=== PATIENT | female | born 1960 | race Two or more races ===

== ENCOUNTER 2019-11-21 21:27 | Emergency (ER) | payer SELFPAY ==
[2019-11-21] MEDS ORDERED: MAG HYDROX/AL HYDROX/SIMETH SUSP 30 ML UDCUP PO ONE (22:25)
[2019-11-21] MEDS ORDERED: LIDOCAINE 2% VISCOUS SOLN 20 ML UDCUP PO ONE (22:25)
[2019-11-21] MEDS ORDERED: ONDANSETRON 4 MG TAB.RAPDIS PO ONE (22:25)
[2019-11-21] MEDS ORDERED: ACETAMINOPHEN 325 MG TABLET PO ONE (22:26)
--- NOTE | 2019-11-21 22:27 | ER Document Report ---
ED Medical Screen (RME) - General Chief Complaint: Abdominal Pain Stated Complaint: STOMACH PAIN,VOMITING,WEAKNESS Time Seen by Provider: 11/21/19 22:22 Mode of Arrival: Ambulatory Information source: Patient Notes: Patient presents complaining of epigastric abdominal pain that started yesterday. Patient reports nausea and vomiting x6 episodes. Patient does complain of some headache pain as well and constipation. Patient denies any significant medical history. I have greeted and performed a rapid initial assessment of this patient. A comprehensive ED assessment and evaluation of the patient, analysis of test results and completion of the medical decision making process will be conducted by additional ED providers. TRAVEL OUTSIDE OF THE [place] IN LAST 30 DAYS: No - Related Data Allergies/Adverse Reactions: Penicillins Allergy (Verified 11/21/19 22:15) Physical Exam - Vital signs Vitals: Temp Pulse Resp BP Pulse Ox 98.7 F 71 18 190/91 H 99 11/21/19 21:53 11/21/19 21:53 11/21/19 21:53 11/21/19 21:53 11/21/19 21:53 - General General appearance: Appears well, Alert - Abdominal Tenderness: Tender - epigastric Course - Vital Signs Vital signs: Temp Pulse Resp BP Pulse Ox 98.7 F 71 18 190/91 H 99 11/21/19 21:53 11/21/19 21:53 11/21/19 21:53 11/21/19 21:53 11/21/19 21:53
--- NOTE | 2019-11-21 23:00 | EKG REPORT ---
SEVERITY:- ABNORMAL ECG - SINUS RHYTHM LEFT VENTRICULAR HYPERTROPHY : Confirmed by: Sohail Oliva MD 21-Nov-2019 22:59:35
[2019-11-21 23:04] LABS: ABSOLUTE LYMPHOCYTES (AUTO) 1.1 10^3/uL (0.5-4.7); ABSOLUTE MONOCYTES (AUTO) 0.3 10^3/uL (0.1-1.4); ABSOLUTE NEUT (AUTO) 5.8 10^3/uL (1.7-8.2); BASOPHILS % (AUTO) 0.3 % (0-2); HEMATOCRIT 43.2 % (36.0-47.0); HEMOGLOBIN 14.6 g/dL (12.0-15.5); LYMPHOCYTES % (AUTO) 15.7 % (13-45); MEAN CORPUSCULAR HEMOGLOBIN 29.8 pg (27.0-33.4); MEAN CORPUSCULAR HGB CONC 33.7 g/dL (32.0-36.0); MEAN CORPUSCULAR VOLUME 88 fl (80-97); MONOCYTES % (AUTO) 3.9 % (3-13); PLATELET COUNT 230 10^3/uL (150-450); RED BLOOD COUNT 4.89 10^6/uL (3.72-5.28); RED CELL DISTRIBUTION WIDTH 13.6 % (11.5-14.0); SEGMENTED NEUTROPHILS % (AUTO) 80.1 % (42-78); TOTAL CELLS COUNTED % (AUTO) 100 %; WHITE BLOOD COUNT 7.2 10^3/uL (4.0-10.5)
[2019-11-21 23:20] LABS: ALBUMIN 4.4 g/dL (3.5-5.0); ALKALINE PHOSPHATASE 132 U/L (38-126); ANION GAP 6 (5-19); ASPARTATE AMINO TRANSFERASE 23 U/L (14-36); BILIRUBIN,DIRECT 0.2 mg/dL (0.0-0.4); BILIRUBIN,TOTAL 0.5 mg/dL (0.2-1.3); BLOOD UREA NITROGEN 9 mg/dL (7-20); CARBON DIOXIDE 33 mmol/L (22-30); CHLORIDE 98 mmol/L (98-107); GLUCOSE 131 mg/dL (75-110); POTASSIUM 3.7 mmol/L (3.6-5.0); TOTAL PROTEIN 7.9 g/dL (6.3-8.2)
[2019-11-22] MEDS ORDERED: NORMAL SALINE 1000 ML 1,000 ML IV ONE (03:02)
--- NOTE | 2019-11-22 03:05 | ER Document Report ---
ED GI/ - General Chief Complaint: Abdominal Pain Stated Complaint: STOMACH PAIN,VOMITING,WEAKNESS Time Seen by Provider: 11/21/19 22:22 Mode of Arrival: Ambulatory Notes: Patient is a 59-year-old female that comes emergency department for chief complaint of upper abdominal pain and vomiting that started 48 hours ago. She denies fever, headache, chest pain, flank pain, dysuria. She states she has not had a bowel movement in 3 days and when she did it was hard. She denies abdominal surgeries, she denies any daily medications, alcohol, smoking, or recreational drugs. She is hypertensive here but denies history of hypertension. She denies any other complaints. TRAVEL OUTSIDE OF THE [place] IN LAST 30 DAYS: No - Related Data Allergies/Adverse Reactions: Penicillins Allergy (Verified 11/21/19 22:15) Past Medical History - General Information source: Patient - Social History Smoking Status: Never Smoker Frequency of alcohol use: None Drug Abuse: None Lives with: Family Family History: Reviewed & Not Pertinent Patient has suicidal ideation: No Patient has homicidal ideation: No Past Surgical History: Reports: Hx Section - Immunizations Hx Diphtheria, Pertussis, Tetanus Vaccination: Yes Review of Systems - Review of Systems Constitutional: No symptoms reported EENT: No symptoms reported Cardiovascular: No symptoms reported Respiratory: No symptoms reported Gastrointestinal: See HPI Genitourinary: No symptoms reported Female Genitourinary: No symptoms reported Musculoskeletal: No symptoms reported Skin: No symptoms reported Hematologic/Lymphatic: No symptoms reported Neurological/Psychological: No symptoms reported Physical Exam - Vital signs Vitals: Temp Pulse Resp BP Pulse Ox 98.7 F 71 18 190/91 H 99 11/21/19 21:53 11/21/19 21:53 11/21/19 21:53 11/21/19 21:53 11/21/19 21:53 - Notes Notes: GENERAL: Sleeping but easily aroused. HEAD: Normocephalic, atraumatic. EYES: Pupils equal, round, and reactive to light. Extraocular movements intact. ENT: Oral mucosa moist, tongue midline. Oropharynx unremarkable. Airway patent. LUNGS: Clear to auscultation bilaterally, no wheezes, rales, or rhonchi. No respiratory distress. HEART: Regular rate and rhythm. No murmur ABDOMEN: Generalized epigastric and upper abdominal tenderness without guarding or rigidity. Lower abdomen benign. Bowel sounds present throughout. GENITOURINARY: Deferred EXTREMITIES: Moves all 4 extremities spontaneously. No edema, normal radial and dorsalis pedis pulses bilaterally. No cyanosis. BACK: no cervical, thoracic, lumbar midline tenderness. No saddle anesthesia, no rmal distal neurovascular exam. Moves all extremities in full range of motion. NEUROLOGICAL: Alert and oriented x3. Normal speech. Cranial nerves II through XII grossly intact. PSYCH: Normal affect, normal mood. SKIN: Warm, dry, normal turgor. No rashes or lesions noted. Course - Re-evaluation Re-evalutation: Patient has mild generalized upper abdominal pain on exam, she is comfortable in appearance, nontoxic. Vital signs unremarkable except for hypertension, patient states she is not normally hypertensive. Patient states GI cocktail did help but her pain is starting to come back. She is requesting pain medication. CBC, chemistry, lipase unremarkable. Urinalysis unremarkable. KUB does not show constipation, ultrasound is unremarkable. After IV fluids and medications patient sitting up, smiling, states she feels completely better and is requesting to leave. She was given food and she ate this without any difficu lty. She is smiling and well-appearing on reevaluation again. Discussed suspected viral illness versus gastritis, very low suspicion of acute abdomen, no chest pain reported, no current symptoms after treatment. Discussed expectations, follow-up, return precautions. Patient states appreciation and agreement. Stable at time of discharge. - Vital Signs Vital signs: Temp Pulse Resp BP Pulse Ox 98.3 F 57 L 12 151/82 H 98 11/22/19 06:52 11/22/19 06:52 11/22/19 06:52 11/22/19 06:52 11/22/19 06:52 - Laboratory Result Diagrams: 11/21/19 22:52 11/21/19 22:52 Laboratory results interpreted by me: 11/21/19 11/21/19 11/22/19 22:52 22:52 03:50 Seg Neutrophils % 80.1 H Carbon Dioxide 33 H Glucose 131 H Alkaline Phosphatase 132 H Urine Ketones TRACE H Urine Blood SMALL H Discharge - Discharge Clinical Impression: Epigastric pain Vomiting Qualifiers: Vomiting type: unspecified Vomiting Intractability: non-intractable Nausea presence: with nausea Qualified Code(s): R11.2 - Nausea with vomiting, unspecified Condition: Stable Disposition: HOME, SELF-CARE Additional Instructions: Your work-up is reassuring, your evaluation is most consistent with gastritis, inflammation of the upper gastrointestinal tract. Take Phenergan for nausea, take Carafate and Pepcid as prescribed to help treat this, you can take additional Rolaids, Tums, Maalox, etc. if needed. You can take Tylenol for pain. Avoid NSAIDs, alcohol, smoking, caffeine, spicy food. Start with clear fluids and progress to bland diet for the first 2 days. Afterwards progress to normal diet. Follow-up with primary care for additional evaluation and treatment including possible H. pylori testing or even endoscopy. Return if you worsen including uncontrolled vomiting, vomiting blood, black stools, severe pain, fever of 100.4 or greater, or any other concerning or worsening symptoms. Prescriptions: Sucralfate [Carafate 1 gm Tablet] 1 gm PO QID #20 tablet Famotidine [Pepcid 20 mg Tablet] 20 mg PO BID #14 tablet Promethazine HCl [Phenergan 25 mg Tablet] 25 mg PO Q6H PRN #15 tablet PRN Reason: Forms: Elevated Blood Pressure
[2019-11-22] MEDS ORDERED: MORPHINE SULFATE 10 MG/ML INJ IV ONE (03:38)
[2019-11-22 04:42] LABS: APPEARANCE,URINE CLEAR; BILIRUBIN,URINE NEGATIVE (NEGATIVE); COLOR,URINE YELLOW; GLUCOSE, URINE NEGATIVE (NEGATIVE); KETONES,URINE TRACE mg/dL (NEGATIVE); LEUKOCYTE ESTERASE,URINE NEGATIVE (NEGATIVE); NITRITE,URINE NEGATIVE (NEGATIVE); PROTEIN,URINE NEGATIVE (NEGATIVE); URINE SPECIFIC GRAVITY 1.011; UROBILINOGEN,URINE NEGATIVE mg/dL (<2.0)
--- NOTE | 2019-11-22 04:46 | RADIOLOGY REPORT (SQ) ---
EXAM DESCRIPTION: XR ABDOMEN 1 VIEW (KUB) COMPLETED DATE/TME: 11/22/2019 03:03 CLINICAL HISTORY: 59 years Female, no recent bowel movement, vomiting, abd pain COMPARISON: None. 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 Intestinal gas pattern is within normal limits. Paucity of bowel gas. No suspicious calcification. Grossly intact skeletal structures. IMPRESSION: No acute findings. w
--- NOTE | 2019-11-22 06:07 | RADIOLOGY REPORT (SQ) ---
Ultrasound right upper quadrant on 11/22/2019 at 4:11 AM CLINICAL INDICATION: Epigastric pain, nausea and vomiting COMPARISON: None FINDINGS: Multiple sonographic images are obtained throughout the right upper quadrant, both transverse and sagittal images are obtained. Visualized pancreas is unremarkable. Visualized aorta is unremarkable. Visualized liver is homogeneous without focal liver lesion or evidence of intrahepatic biliary ductal dilatation. There are no gallstones, gallbladder wall thickening or pericholecystic fluid. Common duct measures 6 mm which is within normal limits mitigating against obstruction of the biliary tree. Right kidney shows no hydronephrosis. No free fluid is noted in the right upper quadrant. IMPRESSION: Unremarkable exam.
[2019-11-22] MEDS ORDERED: ONDANSETRON ODT 4 MG TAB (6 TAB/ER DISP) PO PRN (06:21)
[2019-11-22] MEDS ORDERED: HYDROCODONE/ACETAMINOPHEN 5-325 MG (6 TAB/ER DISP) PO PRN (06:21)
[2019-11-22 06:55] VITALS: BP 151/82
== END 2019-11-22 06:52 | disposition home or self-care (01) ==
LOC: ER 21:27
DX: R10.13 Epigastric pain (principal); R11.2 Nausea with vomiting, unspecified; R53.1 Weakness; R10.10 Upper abdominal pain, unspecified
CPT/HCPCS: 93005; 99284; 96361; 96374; 36415; 83690; 85025; 80053; 81001; 74018; 76705; 93010; S0119; J3490; J2270; J7030